=== PATIENT | female | born 1950 | race Caucasian/White ===

== ENCOUNTER → 2017-07-28 | Day surgery (SDC) | payer MEDICARE ==
[2017-07-07 15:28] LABS: BASOPHILS % 0.4 % (0.0-1.0); EOSINOPHILS # (AUTO) 0.1 (0.0-0.4); EOSINOPHILS % 1.9 % (0.0-6.0); HEMATOCRIT 42.6 % (34.2-44.1); HEMOGLOBIN 13.3 g/dL (12.0-16.0); LYMPHOCYTES # (AUTO) 1.9 (1.0-3.2); LYMPHOCYTES % 35.8 % (18.0-39.1); MEAN CORPUSCULAR HEMOGLOBIN 26.9 pg (28-32); MEAN CORPUSCULAR HGB CONC 31.2 g/dL (31-35); MEAN CORPUSCULAR VOLUME 86.1 fL (81-99); MONOCYTES # (AUTO) 0.3 (0.2-0.8); MONOCYTES % 5.7 % (4.4-11.3); PLATELET COUNT 189 x10e3/uL (140-360); RED BLOOD COUNT 4.95 x10e6/uL (3.6-5.1); RED CELL DISTRIBUTION WIDTH 14.3 % (11.7-14.4)
[2017-07-07 15:41] LABS: ANION GAP 10.5 mmol/L (8-16); BLOOD UREA NITROGEN 10 mg/dL (7-26); BUN/CREATININE RATIO 13 (6-25); CALCIUM 9.1 mg/dL (8.4-10.2); CARBON DIOXIDE 28 mmol/L (22-29); CHLORIDE 109 mmol/L (98-107); CREATININE, SERUM 0.79 mg/dL (0.57-1.11); EST GLOMERULAR FILTRATION RATE > 60 ML/MIN (60-); GLUCOSE 89 mg/dL (74-118); POTASSIUM 4.5 mmol/L (3.5-5.1); SODIUM 143 mmol/L (136-145)
[~2017-07-28] MED LIST: BUPIVACAINE HC 0.75% PF 10ML VIAL INJ ONE; CHONDR SU A NA/HYALUR SOD 1 EACH KIT IO ONE; CYCLOPENTOLATE HCL 1% OPTH SOLN 2ML BTL ONE; EPINEPHRINE HCL INJ 1 MG/ML AMP ONE; FENTANYL CITRATE/PF 100MCG/2 ML INJ ONE; GATIFLOXACIN(OPTH) 5 ML LIQD ONE; LIDOCAINE 2% /EPINEPHRINE 20 ML SDV INJ ONE; LIDOCAINE HCL-PF 4% 40 MG/1 ML 5ML AMP ONE; METOPROLOL TART25 MG PO; MIDAZOLAM HCL 2 MG/2 ML VIAL ONE; PHENYLEPHRINE HCL 2 ML DROPS ONE; PILOCARPINE HCL(OPTH) 15 ML LIQD ONE; POVIDONE IODINE 5% (OPTH) 30 ML BTL ONE; PROPOFOL IV EMULSION 10 MG/ML 20 ML VIAL ONE; TOBRAMYCIN/DEXAMETHASONE(OPTH) 3.5 GM TUBE ONE
== END | disposition home or self-care (01) ==
LOC: OR 07:53
PROVIDERS: ATTEND Ophthalmology
DX: H25.12 Age-related nuclear cataract, left eye (principal); I10 Essential (primary) hypertension; Z01.812 Encounter for preprocedural laboratory examination
CPT/HCPCS: 36415; 66982; 80048; 85025; J0171; J2001; J2250; V2632

== ENCOUNTER → 2017-09-22 | Day surgery (SDC) | payer MEDICARE ==
[2017-09-21 08:17] LABS: BASOPHILS % 0.7 % (0.0-1.0); EOSINOPHILS # (AUTO) 0.1 (0.0-0.4); EOSINOPHILS % 2.4 % (0.0-6.0); HEMATOCRIT 42.4 % (34.2-44.1); HEMOGLOBIN 13.5 g/dL (12.0-16.0); LYMPHOCYTES # (AUTO) 1.8 (1.0-3.2); LYMPHOCYTES % 38.8 % (18.0-39.1); MEAN CORPUSCULAR HEMOGLOBIN 26.9 pg (28-32); MEAN CORPUSCULAR HGB CONC 31.8 g/dL (31-35); MEAN CORPUSCULAR VOLUME 84.5 fL (81-99); MONOCYTES # (AUTO) 0.3 (0.2-0.8); MONOCYTES % 6.2 % (4.4-11.3); NEUTROPHILS # (AUTO) 2.4 (2.1-6.9); NEUTROPHILS % 51.7 % (38.7-80.0); PLATELET COUNT 195 x10e3/uL (140-360); RED BLOOD COUNT 5.02 x10e6/uL (3.6-5.1); RED CELL DISTRIBUTION WIDTH 13.9 % (11.7-14.4)
[~2017-09-22] MED LIST changes: +LIDOCAINE HCL 2% LOCAL INJ 5 ML SDV VIAL INJ ONE; +MEDROL4 MG PO; +METHYLPREDNISOL40 MG IV; +PREDNISONE5 MG PO
== END | disposition home or self-care (01) ==
LOC: OR 06:56
PROVIDERS: ATTEND Ophthalmology
DX: H25.11 Age-related nuclear cataract, right eye (principal); I10 Essential (primary) hypertension; Z01.810 Encounter for preprocedural cardiovascular examination; Z01.812 Encounter for preprocedural laboratory examination
CPT/HCPCS: 36415; 66982; 85025; 93005; J0171; J2001 ×2; J2250; V2632

== ENCOUNTER → 2020-05-22 | Day surgery (SDC) | payer MEDICARE ==
[2020-05-19 08:47] LABS: BASOPHILS % 0.5 % (0.0-1.0); EOSINOPHILS # (AUTO) 0.1 (0.0-0.4); EOSINOPHILS % 2.2 % (0.0-6.0); HEMATOCRIT 46.1 % (34.2-44.1); HEMOGLOBIN 14.5 g/dL (12.0-16.0); LYMPHOCYTES # (AUTO) 1.2 (1.0-3.2); LYMPHOCYTES % 28.5 % (18.0-39.1); MEAN CORPUSCULAR HGB CONC 31.5 g/dL (31-35); MEAN CORPUSCULAR VOLUME 85.7 fL (81-99); MONOCYTES # (AUTO) 0.2 (0.2-0.8); NEUTROPHILS # (AUTO) 2.5 (2.1-6.9); NEUTROPHILS % 62.8 % (38.7-80.0); PLATELET COUNT 202 x10e3/uL (140-360); RED BLOOD COUNT 5.38 x10e6/uL (3.6-5.1); RED CELL DISTRIBUTION WIDTH 13.7 % (11.7-14.4)
[~2020-05-22] MED LIST changes: -BUPIVACAINE HC 0.75% PF 10ML VIAL INJ ONE; -CHONDR SU A NA/HYALUR SOD 1 EACH KIT IO ONE; -CYCLOPENTOLATE HCL 1% OPTH SOLN 2ML BTL ONE; -EPINEPHRINE HCL INJ 1 MG/ML AMP ONE; -GATIFLOXACIN(OPTH) 5 ML LIQD ONE; +HYOSCYAMINE 0.125 MG TAB ONE; -LIDOCAINE 2% /EPINEPHRINE 20 ML SDV INJ ONE; -LIDOCAINE HCL-PF 4% 40 MG/1 ML 5ML AMP ONE; -PHENYLEPHRINE HCL 2 ML DROPS ONE; -PILOCARPINE HCL(OPTH) 15 ML LIQD ONE; -POVIDONE IODINE 5% (OPTH) 30 ML BTL ONE; -TOBRAMYCIN/DEXAMETHASONE(OPTH) 3.5 GM TUBE ONE
[2020-05-22 13:25] VITALS: BP 112/67
== END | disposition home or self-care (01) ==
LOC: OR 09:55
PROVIDERS: ATTEND Internal Medicine Gastroenterology
DX: Z12.11 Encounter for screening for malignant neoplasm of colon (principal); Z85.3 Personal history of malignant neoplasm of breast; I10 Essential (primary) hypertension; Z68.27 Body mass index [BMI] 27.0-27.9, adult; K57.30 Diverticulosis of large intestine without perforation or abscess without bleeding; K64.8 Other hemorrhoids; Z01.810 Encounter for preprocedural cardiovascular examination; Z01.812 Encounter for preprocedural laboratory examination; Z20.828 Contact with and (suspected) exposure to other viral communicable diseases
CPT/HCPCS: 36415; 45380; 85025; 93005; J2001; J2704; U0002; 45378; J2250; J3010